=== PATIENT | male | born 1940 | race Two or more races ===

== ENCOUNTER 2021-12-21 11:59 | Emergency (ER) | payer MEDICARE, BC ==
[~2021-12-21] VITALS: Ht 175.3 cm; Wt 73.5 kg
[2021-12-21] MEDS ORDERED: TDAP DIPH,PERTUSS,TET VAC/PF 0.5 ML DISP.SYRIN IM ONE ×2 (12:30→12:36)
--- NOTE | 2021-12-21 13:29 | NUR ---
PT WAS EVALUATED BY DR MARTÍNEZ. PT WAS D/C'd TO HOME. D/C INSTRUCTIONS GIVEN TO THE PT BY DR MARTÍNEZ.
[2021-12-21 13:30] VITALS: BP 142/88
== END 2021-12-21 13:30 | disposition home or self-care (01) ==
LOC: ER 12:04
DX: S91.112A Laceration without foreign body of left great toe without damage to nail, initial encounter (principal); W45.8XXA Other foreign body or object entering through skin, initial encounter; Y93.89 Activity, other specified; Y92.89 Other specified places as the place of occurrence of the external cause; R03.0 Elevated blood-pressure reading, without diagnosis of hypertension
CPT/HCPCS: 90715; A4217; A4663